=== PATIENT | female | born 1990 | race Hispanic/Latino ===

== ENCOUNTER 2017-04-01 00:48 | Emergency (ER) | payer OTHER ==
[~2017-04-01] VITALS: Ht 157.5 cm; Wt 52.9 kg
[~2017-04-01 00:48] MED LIST: BENTYL10 MG PO; CLINDAMYCIN HC300 MG PO; COLACE100 MG PO; ERYTHROMYC1 APPLICAT BOTH EYES; IBUPROFEN800 MG PO; IRON325 MG PO; Keflex PO; MIRENA52 MG IY; MOTRIN600 MG PO; Motrin PO; NOHOMEMEDS; OMEPRAZOLE20 M2 PO; PERCOCET 5/31 TABLET PO; PRENATAL TABLE1 EAC3 PO; PRENATAL VITAM1 EAC6 PO; Percocet 5/325,Endoc PO; VICODIN,LORT1 TABLET PO; VISINE A.C300 DROP/1 BOTH EYES; [UNRECOGNIZED DRUG - REMARK]
[2017-04-01 02:10] LABS: HEMATOCRIT 39.8 % (36.0-46.0); MCH 32.1 PG (29.0-34.0); MCHC 34.4 G/DL (30.0-36.0); MCV 93.2 FL (83-99); MEAN PLAT.VOLUME 8.9 uM^3 (9.5-12.4); PLATELET COUNT 376 K/uL (156-360); RBC DIS.WIDTH-CV 11.7 % (11.8-14.6); RED BLOOD COUNT 4.27 M/uL (3.80-5.20); WHITE BLOOD COUNT 7.8 K/uL (4.1-10.2)
[2017-04-01 02:13] LABS: ADD MIUA? YES; BILIRUBIN NEGATIVE; BLOOD NEGATIVE; COLOR YELLOW ((YELLOW)); GLUCOSE (STRIP) NEGATIVE; KETONES NEGATIVE; LEUKOCYTES MODERATE; NITRITE NEGATIVE; PROTEIN (STRIP) NEGATIVE; UROBILINOGEN 0.2 MG/DL (0.2-1.0)
[2017-04-01 02:24] LABS: BACTERIA RARE /HPF; EPITHELIAL CELLS 1+ /HPF; MUCUS TRACE /LPF; RED BLOOD CELLS 0-5 /HPF (0-5); UCUL ADDED? NO
[2017-04-01 02:25] LABS: CHLORIDE 106 mEq/L (99-109); POTASSIUM 3.5 mEq/L (3.7-5.4); SODIUM 138 mEq/L (136-147)
[2017-04-01 02:27] LABS: GLUCOSE 81 mg/dL (70-99)
[2017-04-01 02:28] LABS: ANION GAP 10 MEQ/L (2-14)
[2017-04-01 02:29] LABS: TOTAL BILIRUBIN 0.2 mg/dL (0.0-1.0)
[2017-04-01 02:30] LABS: ALKALINE PHOSPHATASE 51 IU/L (3-129); GFR ESTIMATE (CALCULATED) > 59 mL/min/
[2017-04-01 02:32] LABS: UREA NITROGEN (BUN) 11 mg/dL (9-23)
[2017-04-01 02:40] LABS: QUANTITATIVE HCG < 4.0 MIU/ML
[2017-04-01] MEDS ORDERED: PERCOCET 5/31 TABLET PO (03:33)
[2017-04-01] MEDS ORDERED: ZOFRAN ODT4 MG PO (03:33)
[2017-04-01 03:41] VITALS: BP 119/81
== END 2017-04-01 03:42 | disposition home or self-care (01) ==
LOC: EXP 00:48 → EME 00:48 → EXP 03:42
PROVIDERS: Physician Assistant
DX: M54.5 Low back pain (principal); K59.00 Constipation, unspecified; N20.0 Calculus of kidney; R11.0 Nausea; Z87.442 Personal history of urinary calculi
CPT/HCPCS: 74000; 80053; 81003; 84702; 85027; 87086; 99281; 99284; J1885

== ENCOUNTER 2017-12-23 19:11 | Emergency (ER) | payer OTHER ==
[~2017-12-23] VITALS: Ht 157.5 cm; Wt 54.6 kg
[~2017-12-23 19:11] MED LIST changes: +ZOFRAN ODT4 MG PO
[2017-12-23 20:03] LABS: HEMATOCRIT 38.8 % (36.0-46.0); HEMOGLOBIN 13.1 G/DL (11.9-15.5); MCH 31.8 PG (29.0-34.0); MCHC 33.8 G/DL (30.0-36.0); MCV 94.2 FL (83-99); PLATELET COUNT 384 K/uL (156-360); RBC DIS.WIDTH-SD 41.6 % (39-53); RED BLOOD COUNT 4.12 M/uL (3.80-5.20)
[2017-12-23 20:23] LABS: TROP-I INTERPRETATION NEGATIVE; TROPONIN-I < 0.01 ng/mL (0.0-0.30)
[2017-12-23 20:26] LABS: CHLORIDE 105 mEq/L (99-109); POTASSIUM 3.2 mEq/L (3.7-5.4); SODIUM 138 mEq/L (136-147)
[2017-12-23 20:27] LABS: GLUCOSE 149 mg/dL (70-99)
[2017-12-23 20:31] LABS: CREATININE 0.7 mg/dL (0.6-1.3); GFR ESTIMATE (CALCULATED) > 59 mL/min/
[2017-12-23 20:32] LABS: UREA NITROGEN (BUN) 6 mg/dL (9-23)
[2017-12-23 21:58] LABS: D-DIMER ELISA < 150.00 ng/mLDDU (<230)
[2017-12-23 23:20] LABS: TROP-I INTERPRETATION NEGATIVE; TROPONIN-I < 0.01 ng/mL (0.0-0.30)
[2017-12-23] MEDS ORDERED: ZITHROMAX Z-PA250 MG PO (23:30)
[2017-12-23 23:44] VITALS: BP 115/79
== END 2017-12-23 23:45 | disposition home or self-care (01) ==
LOC: EME 19:11
PROVIDERS: Physician Assistant Medical
DX: J18.9 Pneumonia, unspecified organism (principal); Z87.442 Personal history of urinary calculi
CPT/HCPCS: 71046; 80048; 84484; 85027; 85379; 99281; 99284